=== PATIENT | female | born 1990 | race American Indian/Alaskan Native ===

== ENCOUNTER 2017-07-29 08:36 | Emergency (ER) | payer SELFPAY ==
[2017-07-29 08:41] VITALS: BP 107/70
[2017-07-29] MEDS ORDERED: DECADRON ONE (10:16)
--- NOTE | 2017-07-29 10:16 | Emergency Department Report ---
ED ENT HPI - General Chief complaint: Sore Throat Stated complaint: SORE THROAT Time Seen by Provider: 07/29/17 10:01 Source: patient Mode of arrival: Ambulatory Limitations: No Limitations - History of Present Illness Initial comments: Patient is a 27-year-old female who is presenting with sore throat. Patient states she is head sore throat for 2 days R swallows feels as though her throat is swelling. The patient denies any fever cough. Patient does states she feels some sinus congestion. Patient has not had any nausea vomiting diarrhea at this time. - Related Data Previous Rx's Medication Instructions Recorded Last Taken Type HYDROcodone/ACETAMINOPHEN 15 ml PO Q6HR PRN #150 solution 07/29/17 Unknown Rx [Hydrocodon-Acetamin 7.5-325/15] Allergies Allergy/AdvReac Type Severity Reaction Status Date / Time No Known Allergies Allergy Unverified 07/29/17 08:38 ED Dental HPI - General Chief complaint: Sore Throat Stated complaint: SORE THROAT Time Seen by Provider: 07/29/17 10:01 Source: patient Mode of arrival: Ambulatory Limitations: No Limitations - Related Data Previous Rx's Medication Instructions Recorded Last Taken Type HYDROcodone/ACETAMINOPHEN 15 ml PO Q6HR PRN #150 solution 07/29/17 Unknown Rx [Hydrocodon-Acetamin 7.5-325/15] Allergies Allergy/AdvReac Type Severity Reaction Status Date / Time No Known Allergies Allergy Unverified 07/29/17 08:38 ED Review of Systems ROS: Stated complaint: SORE THROAT Other details as noted in HPI Comment: All other systems reviewed and negative ED Past Medical Hx - Past Medical History Previous Medical History?: No - Surgical History Past Surgical History?: No - Social History Smoking Status: Never Smoker Substance Use Type: None - Medications Home Medications: Home Medications Medication Instructions Recorded Confirmed Last Taken Type HYDROcodone/ACETAMINOPHEN 15 ml PO Q6HR PRN #150 solution 07/29/17 Unknown Rx [Hydrocodon-Acetamin 7.5-325/15] ED Physical Exam - General Limitations: No Limitations General appearance: alert, in no apparent distress - Head Head exam: Present: atraumatic, normocephalic - Eye Eye exam: Present: normal appearance - ENT ENT exam: Present: mucous membranes moist, other (patient has bilateral tonsillar swelling with a small amount of exudate. There is anterior cervical lymph nodes present.) - Neck Neck exam: Present: normal inspection - Respiratory Respiratory exam: Present: normal lung sounds bilaterally. Absent: respiratory distress, wheezes, rales, rhonchi - Cardiovascular Cardiovascular Exam: Present: regular rate, normal rhythm. Absent: systolic murmur, diastolic murmur, rubs, gallop - GI/Abdominal GI/Abdominal exam: Present: soft, normal bowel sounds - Extremities Exam Extremities exam: Present: normal inspection - Back Exam Back exam: Present: normal inspection - Neurological Exam Neurological exam: Present: alert, oriented X3 - Psychiatric Psychiatric exam: Present: normal affect, normal mood - Skin Skin exam: Present: warm, dry, intact, normal color. Absent: rash ED Course Vital Signs 07/29/17 08:38 Temperature 98.4 F Pulse Rate 112 H Respiratory 18 Rate Blood Pressure 107/70 O2 Sat by Pulse 98 Oximetry ED Medical Decision Making - Medical Decision Making Patient does be [facility] criteria for treatment for pharyngitis. Patient be started on Bicillin given a Decadron shot. Patient discharged home with liquid pain meds. Critical care attestation.: If time is entered above; I have spent that time in minutes in the direct care of this critically ill patient, excluding procedure time. ED Disposition Clinical Impression: Pharyngitis Qualifiers: Pharyngitis/tonsillitis etiology: unspecified etiology Qualified Code(s): J02.9 - Acute pharyngitis, unspecified Disposition: TO HOME OR SELFCARE Is pt being admited?: No Does the pt Need Aspirin: No Condition: Stable Instructions: Pharyngitis (ED) Referrals: PRIMARY CARE, [Primary Care Provider] - 3-5 Days
[2017-07-29] MEDS ORDERED: BICILLIN L-A IM ONE ×2 (10:17)
[2017-07-29] MEDS ORDERED: DECADRON IM ONE (10:17)
== END 2017-07-29 10:57 | disposition home or self-care (01) ==
LOC: ED 08:36
DX: J02.9 Acute pharyngitis, unspecified (principal)
CPT/HCPCS: 96372; 99282; J0561; J1100

== ENCOUNTER 2017-08-18 08:56 | Emergency (ER) | payer BC, OTHER ==
[2017-08-18 09:07] VITALS: BP 111/63
--- NOTE | 2017-08-18 09:22 | Emergency Department Report ---
Blank Doc - Documentation Documentation: Patient is a 27-year-old female who is presenting with pelvic pain. Patient denies any dysuria vaginal bleeding or vaginal discharge. States sharp pelvic pain does have some radiation to her lower back. Patient initially thought this could've been associated with her menses however is different in caliber. Patient denies a fever nausea vomiting or diarrhea. Brief physical exam patient does have some mild tenderness suprapubic region and just below the umbilicus. Patient will be sent for a pelvic exam to treatment room patient will have a urinalysis breakfast test done and the patient will be reassessed.
[2017-08-18 09:41] LABS: Bilirubin,Urine NEG (Negative); Blood,Urine NEG (Negative); Color,Urine Yellow (Yellow); HCG Qualitative,Urine Negative (Negative); Mucus,Urine 2+ /HPF; Protein,Urine <15 mg/dL mg/dL (Negative); Urobilinogen,Urine < 2.0 mg/dL (<2.0)
--- NOTE | 2017-08-18 10:50 | Emergency Department Report ---
ED Female HPI - General Chief complaint: Abdominal Pain Stated complaint: ABD PAIN Time Seen by Provider: 08/18/17 09:17 Source: patient Mode of arrival: Ambulatory Limitations: No Limitations - History of Present Illness Initial comments: This is a 27-year-old female here report that she is having pelvic pain and lower back pain for week. Denies any urinary burning or frequency. Denies any vaginal discharge. Reports possible STD but does not know for sure and she wants STD test done. Last menstrual period was 07/14/2017 and also reported that she might be . Denies any nausea vomiting or vaginal bleeding. No medication taken for pain. MD Complaint: vaginal discharge, pelvic pain, possible STD Onset/Timin -: week(s) Location: suprapubic Radiation: non-radiating Severity: moderate Severity scale (0 -10): 6 Quality: cramping Consistency: intermittent Improves with: none Worsens with: none Are you Now?: No (unsure) Last Menstrual Period: 07/14/17 EDC: 04/20/18 Associated Symptoms: abdominal pain. denies: vaginal discharge, vaginal bleeding, nausea/vomiting, fever/chills, headaches, loss of appetite, dysuria, hematuria, rash, seizure, shortness of breath, syncope, weakness - Related Data Sexually active: Yes Previous Rx's Medication Instructions Recorded Last Taken Type Fluconazole [Diflucan TAB] 100 mg PO QDAY 2 Days #2 tablet 08/18/17 Unknown Rx metroNIDAZOLE [Flagyl] 500 mg PO Q12HR 7 Days #14 tab 08/18/17 Unknown Rx Allergies Allergy/AdvReac Type Severity Reaction Status Date / Time No Known Allergies Allergy Unverified 07/29/17 08:38 ED Review of Systems ROS: Stated complaint: ABD PAIN Other details as noted in HPI Constitutional: denies: chills, fever Eyes: denies: eye pain, eye discharge, vision change ENT: denies: ear pain, throat pain Respiratory: denies: cough, shortness of breath, wheezing Cardiovascular: denies: chest pain, palpitations Gastrointestinal: denies: abdominal pain, nausea, diarrhea Genitourinary: abnormal menses. denies: urgency, dysuria, hematuria, discharge Musculoskeletal: denies: back pain, joint swelling, arthralgia Skin: denies: rash, lesions ED Past Medical Hx - Past Medical History Previous Medical History?: No Additional medical history: Vaginal delivery x 1 on 08-25-2012 - Surgical History Past Surgical History?: Yes - Family History Family history: hypertension - Social History Smoking Status: Never Smoker Substance Use Type: None - Medications Home Medications: Home Medications Medication Instructions Recorded Confirmed Last Taken Type Fluconazole [Diflucan TAB] 100 mg PO QDAY 2 Days #2 tablet 08/18/17 Unknown Rx metroNIDAZOLE [Flagyl] 500 mg PO Q12HR 7 Days #14 tab 08/18/17 Unknown Rx ED Physical Exam - General Limitations: No Limitations General appearance: alert, in no apparent distress - Head Head exam: Present: atraumatic, normocephalic, normal inspection - Eye Eye exam: Present: normal appearance, PERRL, EOMI - ENT ENT exam: Present: normal exam, normal orophraynx, mucous membranes moist - Neck Neck exam: Present: normal inspection, full ROM. Absent: tenderness, lymphadenopathy - Respiratory Respiratory exam: Present: normal lung sounds bilaterally. Absent: respiratory distress, chest wall tenderness - Cardiovascular Cardiovascular Exam: Present: regular rate, normal rhythm, normal heart sounds - GI/Abdominal GI/Abdominal exam: Present: soft, normal bowel sounds. Absent: distended, tenderness, guarding, rebound, rigid, organomegaly, mass, bruit, pulsatile mass - External exam: Present: normal external exam Speculum exam: Present: vaginal discharge, cervical discharge. Absent: erythema , vaginal bleeding, foreign body, tissue, laceration Bi-manual exam: Present: normal bi-manual exam - Extremities Exam Extremities exam: Present: normal inspection, full ROM, normal capillary refill. Absent: tenderness, pedal edema - Back Exam Back exam: Present: normal inspection, full ROM. Absent: tenderness, CVA tenderness (R), CVA tenderness (L) - Neurological Exam Neurological exam: Present: alert, oriented X3, normal gait - Psychiatric Psychiatric exam: Present: normal affect, normal mood - Skin Skin exam: Present: warm, dry, intact, normal color. Absent: rash ED Course Vital Signs 08/18/17 09:02 Temperature 97.6 F Pulse Rate 92 H Respiratory 18 Rate Blood Pressure 111/63 O2 Sat by Pulse 97 Oximetry - Reevaluation(s) Reevaluation #1: 08/18/17 13:39 Patient remained stable throughout ED course ED Medical Decision Making - Lab Data Lab Results 08/18/17 Range/Units 09:16 Urine Color Yellow (Yellow) Urine Turbidity Clear (Clear) Urine pH 5.0 (5.0-7.0) Ur Specific [place] 1.025 (1.003-1.030) Urine Protein <15 mg/dl (Negative) mg/dL Urine Glucose (UA) Neg (Negative) mg/dL Urine Ketones Neg (Negative) mg/dL Urine Blood Neg (Negative) Urine Nitrite Neg (Negative) Ur Reducing Substances Not Reportable Urine Bilirubin Neg (Negative) Urine Ictotest Not Reportable Urine Urobilinogen < 2.0 (<2.0) mg/dL Ur Leukocyte Esterase Neg (Negative) Urine WBC (Auto) 1.0 (0.0-6.0) /HPF Urine RBC (Auto) 2.0 (0.0-6.0) /HPF U Epithel Cells (Auto) 3.0 (0-13.0) /HPF Urine Mucus 2+ /HPF Urine HCG, Qual Negative (Negative) Wet prep shows less than 20% clue cells, negative Trichomonas and positive yeast - Medical Decision Making ED course: This is a 27-year-old female patient here reports that she is concerned for and she missed a period and concern for STD. Patient here complaining of pelvic cramping and here to be tested and evaluated. Patient was examined by myself to include pelvic exam and she has vaginal discharge otherwise pelvic exam is normal. Her other physical exam is normal. Urinalysis negative and test is negative. Gonorrhea and chlamydia test suspended and wet prep shows less than 20% clue cells, negative Trichomonas and positive yeast. I discussed results with patient and she voiced understanding. I also discussed with her that she needs to follow-up with [place] [place] [facility] ERISA ATTORNEY as she does not have an ERISA ATTORNEY to have Pap smear. He did not need any medication for pain in emergency room. A/P 1-female concerned for STD without diagnosis-wet prep with less than 20% clue cells and positive yeast negative trich. Gonorrhea and chlamydia test is pending. Urinalysis negative. Urine is negative 2-pelvic pain-Resolved Patient educated on treatment plan, medication and need to follow up with OB/ [employer] and she was understanding ED staff in fast track advised me the patient left a period I had spoken to her about her results and she was waiting to get her discharge report and she left prior to getting her discharge paperwork. - Differential Diagnosis PID, , UTI, STD Critical care attestation.: If time is entered above; I have spent that time in minutes in the direct care of this critically ill patient, excluding procedure time. ED Disposition Clinical Impression: Concern about STD in female without diagnosis, Bacterial vaginosis, Yeast infection, Pelvic pain Disposition: TO HOME OR SELFCARE Is pt being admited?: No Does the pt Need Aspirin: No Condition: Stable Instructions: Bacterial Vaginosis (ED), Abdominal Pain (ED), Vaginitis (ED) Additional Instructions: Please follow up with ERISA ATTORNEY at some outside [facility] for further evaluation and Pap smear Take medication as prescribed Prescriptions: Fluconazole [Diflucan TAB] 100 mg PO QDAY 2 Days #2 tablet metroNIDAZOLE [Flagyl] 500 mg PO Q12HR 7 Days #14 tab Referrals: [facility] [Outside] - 2-3 Days Forms: STI Treatment and Prevention
== END 2017-08-18 13:57 | disposition home or self-care (01) ==
LOC: ED 08:56
DX: N76.0 Acute vaginitis (principal); B96.89 Other specified bacterial agents as the cause of diseases classified elsewhere; B37.9 Candidiasis, unspecified; R10.2 Pelvic and perineal pain
CPT/HCPCS: 81001; 81025; 87210; 87591; 99284

== ENCOUNTER 2017-11-04 16:11 | Emergency (ER) | payer BC ==
[2017-11-04 17:36] VITALS: BP 114/64
--- NOTE | 2017-11-04 20:17 | Emergency Department Report ---
ED ENT HPI - General Chief complaint: Sore Throat Stated complaint: THROAT PAIN Time Seen by Provider: 11/04/17 18:48 Source: patient Mode of arrival: Ambulatory Limitations: No Limitations - History of Present Illness Initial comments: 27-year-old female presents to the emergency room for sore throat 3 days. Patient reports that pain is worse with swallowing. Patient has not taken any pain medication. She denies any fever chills no nausea no vomiting. She does admit to nasal congestion, runny nose, cough. MD complaint: sore throat, other (pain worse with swallowing) -: days(s) (3) - Related Data Previous Rx's Medication Instructions Recorded Last Taken Type Fluconazole [Diflucan TAB] 100 mg PO QDAY 2 Days #2 tablet 08/18/17 Unknown Rx metroNIDAZOLE [Flagyl] 500 mg PO Q12HR 7 Days #14 tab 08/18/17 Unknown Rx Benzonatate [Tessalon Perle] 100 mg PO TID #15 capsule 11/04/17 Unknown Rx Cetirizine HCl [ZyrTEC] 10 mg PO QDAY #14 capsule 11/04/17 Unknown Rx Allergies Allergy/AdvReac Type Severity Reaction Status Date / Time No Known Allergies Allergy Unverified 07/29/17 08:38 ED Dental HPI - General Chief complaint: Sore Throat Stated complaint: THROAT PAIN Time Seen by Provider: 11/04/17 18:48 Source: patient Mode of arrival: Ambulatory Limitations: No Limitations - Related Data Previous Rx's Medication Instructions Recorded Last Taken Type Fluconazole [Diflucan TAB] 100 mg PO QDAY 2 Days #2 tablet 08/18/17 Unknown Rx metroNIDAZOLE [Flagyl] 500 mg PO Q12HR 7 Days #14 tab 08/18/17 Unknown Rx Benzonatate [Tessalon Perle] 100 mg PO TID #15 capsule 11/04/17 Unknown Rx Cetirizine HCl [ZyrTEC] 10 mg PO QDAY #14 capsule 11/04/17 Unknown Rx Allergies Allergy/AdvReac Type Severity Reaction Status Date / Time No Known Allergies Allergy Unverified 07/29/17 08:38 ED Review of Systems ROS: Stated complaint: THROAT PAIN Other details as noted in HPI ED Past Medical Hx - Past Medical History Previous Medical History?: Yes Additional medical history: Vaginal delivery x 1 on 08-25-2012 - Surgical History Past Surgical History?: Yes Additional Surgical History: cysyt removal from right neck. - Social History Smoking Status: Never Smoker Substance Use Type: None - Medications Home Medications: Home Medications Medication Instructions Recorded Confirmed Last Taken Type Fluconazole [Diflucan TAB] 100 mg PO QDAY 2 Days #2 tablet 08/18/17 Unknown Rx metroNIDAZOLE [Flagyl] 500 mg PO Q12HR 7 Days #14 tab 08/18/17 Unknown Rx Benzonatate [Tessalon Perle] 100 mg PO TID #15 capsule 11/04/17 Unknown Rx Cetirizine HCl [ZyrTEC] 10 mg PO QDAY #14 capsule 11/04/17 Unknown Rx ED Physical Exam - General Limitations: No Limitations General appearance: alert, in no apparent distress - Head Head exam: Present: atraumatic, normocephalic - ENT ENT exam: Present: mucous membranes moist, TM's normal bilaterally - Expanded ENT Exam Expanded Throat exam: Positive: tonsillar erythema, tonsillomegaly. Negative: tonsillar exudate - Neck Neck exam: Present: normal inspection, full ROM. Absent: tenderness, lymphadenopathy - Respiratory Respiratory exam: Present: normal lung sounds bilaterally. Absent: respiratory distress - Cardiovascular Cardiovascular Exam: Present: regular rate, normal rhythm. Absent: systolic murmur, diastolic murmur, rubs, gallop ED Course Vital Signs 11/04/17 17:34 Temperature 98.3 F Pulse Rate 106 H Respiratory 18 Rate Blood Pressure 114/64 O2 Sat by Pulse 98 Oximetry ED Medical Decision Making - Medical Decision Making Patient has been evaluated by this provider fast track. Rapid strep sent out which is negative. Patient and be treated for allergic rhinitis placed on antihistamines. Wilfrido. Critical care attestation.: If time is entered above; I have spent that time in minutes in the direct care of this critically ill patient, excluding procedure time. ED Disposition Clinical Impression: Allergic rhinitis Qualifiers: Allergic rhinitis trigger: unspecified Allergic rhinitis seasonality: unspecified Qualified Code(s): J30.9 - Allergic rhinitis, unspecified Disposition: DC-01 TO HOME OR SELFCARE Is pt being admited?: No Does the pt Need Aspirin: No Condition: Stable Instructions: Allergic Rhinitis (ED) Additional Instructions: Please take medication as prescribed. They're strep test was negative. If symptoms persists please follow up with a primary care provider. Prescriptions: Benzonatate [Tessalon Perle] 100 mg PO TID #15 capsule Cetirizine HCl [ZyrTEC] 10 mg PO QDAY #14 capsule Referrals: PRIMARY CARE, [Primary Care Provider] - 3-5 Days [facility] [Provider Group] - 3-5 Days Forms: Work/School Release Form(ED)
== END 2017-11-04 20:27 | disposition home or self-care (01) ==
LOC: ED 16:11
DX: J30.9 Allergic rhinitis, unspecified (principal)
CPT/HCPCS: 87116; 87430; 99283

== ENCOUNTER 2018-04-16 18:55 | Emergency (ER) | payer SELFPAY ==
[2018-04-16 19:56] VITALS: BP 107/57
[2018-04-16 23:57] LABS: Bilirubin,Urine NEG (Negative); Blood,Urine NEG (Negative); Color,Urine Yellow (Yellow); Mucus,Urine 2+ /HPF; Urobilinogen,Urine < 2.0 mg/dL (<2.0)
[2018-04-17 00:01] LABS: HCG Qualitative,Urine Negative (Negative)
== END 2018-04-16 23:21 | disposition left against medical advice (07) ==
LOC: ED 18:55
DX: R10.9 Unspecified abdominal pain (principal); N89.8 Other specified noninflammatory disorders of vagina; Z53.21 Procedure and treatment not carried out due to patient leaving prior to being seen by health care provider
CPT/HCPCS: 81001; 81025